=== PATIENT | male | born 1995 | race Caucasian/White ===

== ENCOUNTER 2017-06-30 19:01 | Emergency (ER) | payer BC ==
[2017-06-30 19:05] VITALS: TEMP 97.9; O2SAT 96
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
[2017-06-30 20:37] VITALS: BP 127/70; PULSE 73; RESP 16
== END 2017-06-30 20:46 | disposition home or self-care (01) ==
DX: S60.512A Abrasion of left hand, initial encounter (principal); S50.812A Abrasion of left forearm, initial encounter; V18.4XXA Pedal cycle driver injured in noncollision transport accident in traffic accident, initial encounter; Y92.410 Unspecified street and highway as the place of occurrence of the external cause; Y99.8 Other external cause status; Y93.55 Activity, bike riding